=== PATIENT | female | born 2000 | race African-American/Black ===

== ENCOUNTER 2020-01-29 18:50 | Emergency (ER) | payer BC, OTHER ==
--- NOTE | 2020-01-29 19:29 | EDM.PDOC ---
ED HPI GENERAL MEDICAL PROBLEM - General Chief Complaint: ENT Problem Stated Complaint: COVID-19 SYMTOMS Time Seen by Provider: 01/29/20 19:25 Source of Information: Reports: Patient - History of Present Illness INITIAL COMMENTS - FREE TEXT/NARRATIVE: The patient is a healthy 19-year-old female who presents to the ER for the concern for a possible Covid 19 virus infection. Over the last several days she has had nasal congestion, cough, chest pain with cough, chills, and a sore throat. No dyspnea exertion but she is fatigued, no hemoptysis, no other acute complaints. Throat Pain Score (Numeric/FACES): 10 - Related Data Allergies Allergy/AdvReac Type Severity Reaction Status Date / Time No Known Allergies Allergy Verified 01/29/20 19:02 Home Meds: Home Meds . [No Known Home Meds] 01/29/20 [History] Past Medical History HEENT History: Reports: None Cardiovascular History: Reports: None Respiratory History: Reports: None Gastrointestinal History: Reports: None Genitourinary History: Reports: None PORTFOLIO ASSISTANT History: Reports: None Musculoskeletal History: Reports: None Neurological History: Reports: None Psychiatric History: Reports: None Endocrine/Metabolic History: Reports: None Hematologic History: Reports: None Immunologic History: Reports: None Oncologic (Cancer) History: Reports: None Dermatologic History: Reports: None - Infectious Disease History Infectious Disease History: Reports: None - Past Surgical History Head Surgeries/Procedures: Reports: None Social & Family History - Tobacco Use Smoking Status *Q: Never Smoker - Recreational Drug Use Recreational Drug Use: No ED ROS ENT - Review of Systems Review Of Systems: See Below (Positive for cough, positive nasal congestion, positive for sore throat, positive for malaise, all other Positives and pertinent negatives as per HPI. All other pertinent systems were reviewed and are negative) ED EXAM, ENT - Physical Exam Exam: See Below Text/Narrative:: Constitutional: No acute distress, Non-toxic appearance, sounds nasally congested HEENT.: Normocephalic, Atraumatic, PERRL, EOMI, External ears are atraumatic, Oropharynx clear and moist without lesions or masses, nares are congested without epistaxis Neck: Normal range of motion, Trachea Midline, No stridor Respiratory.: No respiratory distress, No tachypnea, Lungs Clear to Auscultation bilaterally without wheezes, rales, or rhonchi Cardiovascular.: Regular rate and Rhythm without murmurs, rubs, or gallops, good peripheral perfusion GI: Deferred Genital Urinary: Deferred Musculoskeletal: Good range of motion. All 4 extremities present and atraumatic , no edema Back: Full Range of Motion Skin: Warm, Dry, Color is ethnicity appropriate, No acute rash. Lymphatic: No lymphadenopathy noted Neurological: Alert, Awake and oriented x 3, No focal deficits noted appreciate , GCS 15 Psych: Affect, Judgement, mood normal Course - Vital Signs Text/Narrative:: History and exam are consistent with a classic viral syndrome. Even if the patient were to have Covid 19, given that she is not hypoxic, her lungs are clear, vital signs are excellent, etc. treatment is only symptomatic and no testing will be performed. Everything was explained to the patient to her satisfaction. She will be given a note for work and she can go back when she is feeling better. Last Recorded V/S: Last Vital Signs Temp 36.5 C 01/29/20 18:58 Pulse 97 01/29/20 18:58 Resp 18 01/29/20 18:58 BP 115/85 01/29/20 18:58 Pulse Ox 97 01/29/20 18:58 Departure - Departure Time of Disposition: 19:28 Disposition: Home, Self-Care 01 Condition: Good Clinical Impression: Viral syndrome - Discharge Information Referrals: PCP,None [Primary Care Provider] - Additional Instructions: VIRAL SYNDROME This appears to be a viral syndrome. They are highly common and variable, causing fevers, colds, coughs, headaches, vomiting, diarrhea, etc. Antibiotics don't work on viruses, and they need to run their course. On average these last 7-10 days, depending upon the virus. There are some that even last up to several weeks. Rest, drink plenty of clear fluids, especially water. You want our urine to be clear to a light yellow. Ibuprofen 800 mg and Tylenol 1000 mg may be taken at the same time every 6 hours as needed for fevers and discomfort. Upper respiratory congestion and sore throats can be improved with cool liquids , humidifiers, cough drops with menthol, honey, tea with honey, and over-the- counter decongestants. Return to the ER if you develop difficulty breathing, or any other concerns. Sepsis Event Note - Evaluation Sepsis Screening Result: Possible Sepsis Risk - Focused Exam Vital Signs: Vital Signs Temp Pulse Resp BP Pulse Ox 01/29/20 18:58 36.5 C 97 18 115/85 97 Date Exam was Performed: 01/29/20 Time Exam was Performed: 19:25
== END 2020-01-29 19:40 | disposition home or self-care (01) ==
LOC: MW.ED 18:50
DX: B34.9 Viral infection, unspecified (principal)
CPT/HCPCS: 99282; 99284